=== PATIENT | female | born 1935 | race Hispanic/Latino ===

== ENCOUNTER 2021-05-06 20:28 | Emergency (ER) | payer MEDICARE ==
[~2021-05-06] VITALS: Ht 157.5 cm; Wt 49.9 kg
[2021-05-06] MEDS ORDERED: 0.9% NACL 500ML IV.SOLN 500 ML IV ONE (21:00)
[2021-05-06 21:13] LABS: APPEARANCE,URINE Cloudy (CLEAR); BILIRUBIN,URINE Moderate (NEGATIVE); COLOR,URINE Dark Yellow (YELLOW); GLUCOSE, URINE (UA) Negative (NEGATIVE); KETONES,URINE 40 mg/dL (NEGATIVE); LEUKOCYTE ESTERASE ,URINE Moderate (NEGATIVE); NITRATE,URINE Negative (NEGATIVE); OCCULT BLOOD,URINE Trace (NEGATIVE); PH,URINE 5.5 (5.0-8.0); PROTEIN,URINE POS 1+ mg/dL (NEGATIVE)
[2021-05-06 21:19] LABS: BASOPHILS % (AUTO) 0.2 % (0.0-5.0); EOSINOPHILS % (AUTO) 0.5 % (0.0-8.0); HEMATOCRIT 28.1 % (36-48); LYMPHOCYTES % (AUTO) 12.8 % (21.0-51.0); MEAN CORPUSCULAR HEMOGLOBIN 27.4 pg (27.0-33.0); MEAN CORPUSCULAR HGB CONC 31.7 g/dL (32.0-36.0); MEAN CORPUSCULAR VOLUME 86.5 fL (79-99); MONOCYTES % (AUTO) 7.6 % (3.0-13.0); NEUTROPHILS % (AUTO) 78.1 % (40.0-77.0); PLATELET COUNT (AUTO) 629 K/uL (130-400); RED BLOOD CELL COUNT(AUTO) 3.25 MIL/uL (4.00-5.50); RED CELL DISTRIBUTION WIDTH 14.3 % (11.0-15.5); WHITE BLOOD COUNT (AUTO) 20.1 K/uL (4.8-10.8)
[2021-05-06 21:21] LABS: BACTERIA,URINE Few /HPF (None Seen); SQUAMOUS EPITHELIAL CELL,UR Moderate /HPF (0-2); TRANSITIONAL EPI CELLS,URINE Few /HPF (None Seen)
[2021-05-06 21:22] LABS: MUCUS,URINE Few LPF (None Seen)
[2021-05-06 21:29] LABS: POTASSIUM 3.6 mmol/L (3.5-5.1)
[2021-05-06 21:33] LABS: ALBUMIN 2.3 g/dL (3.5-5.0); BILIRUBIN,TOTAL 0.4 mg/dL (0.2-1.0); MAGNESIUM 1.7 mg/dL (1.80-2.40); TOTAL PROTEIN, SERUM 8.6 g/dL (6.0-8.3)
[2021-05-06 21:55] LABS: SALICYLATE < 2.8 mg/dL (2.8-20.0)
[2021-05-06 21:56] LABS: ACETAMINOPHEN < 1 mcg/mL (10-30)
[2021-05-06] MEDS ORDERED: 0.9%NACL 1000ML 1,000 ML IV ONE (23:30)
[2021-05-06] MEDS ORDERED: CEFTRIAXONE 1G VIAL IVP ONE (23:30)
[2021-05-06] MEDS ORDERED: CEPH500B PO (23:32)
[2021-05-07 00:40] VITALS: BP 123/52
== END 2021-05-07 00:49 | disposition home or self-care (01) ==
LOC: EDH 20:28
DX: N39.0 Urinary tract infection, site not specified (principal); E86.0 Dehydration; Z20.822 Contact with and (suspected) exposure to COVID-19; F03.90 Unspecified dementia, unspecified severity, without behavioral disturbance, psychotic disturbance, mood disturbance, and anxiety; I10 Essential (primary) hypertension
CPT/HCPCS: 36415; 71045; 80053; 81001; 83605; 83735; 84100; 84484; 85025; 87040 ×2; 87088; 87635; 87804 ×2; 93005; 96361; 96374; 99291; C9803; G0481; J0696; J7030; J7040

== ENCOUNTER 2021-05-28 17:13 | Inpatient (IN) | payer MEDICARE ==
[~2021-05-28] VITALS: Ht 154.9 cm; Wt 41.1 kg
[~2021-05-28 17:13] MED LIST: CEFD300C3 PO; CEPH500B PO; ONDA4TAB10 PO
[2021-05-28 18:02] LABS: BASOPHILS % (AUTO) 0.5 % (0.0-5.0); EOSINOPHILS % (AUTO) 2.2 % (0.0-8.0); HEMATOCRIT 28.6 % (36-48); LYMPHOCYTES % (AUTO) 24.8 % (21.0-51.0); MEAN CORPUSCULAR HEMOGLOBIN 26.9 pg (27.0-33.0); MEAN CORPUSCULAR HGB CONC 30.4 g/dL (32.0-36.0); MEAN CORPUSCULAR VOLUME 88.5 fL (79-99); MONOCYTES % (AUTO) 4.5 % (3.0-13.0); NEUTROPHILS % (AUTO) 66.9 % (40.0-77.0); PLATELET COUNT (AUTO) 406 K/uL (130-400); RED BLOOD CELL COUNT(AUTO) 3.23 MIL/uL (4.00-5.50); RED CELL DISTRIBUTION WIDTH 14.9 % (11.0-15.5); WHITE BLOOD COUNT (AUTO) 13.5 K/uL (4.8-10.8)
[2021-05-28 18:18] LABS: CREATININE 1.3 mg/dL (0.5-1.5); POTASSIUM 4.2 mmol/L (3.5-5.1)
[2021-05-28 18:29] LABS: ALBUMIN 2.6 g/dL (3.5-5.0); BILIRUBIN,TOTAL 0.3 mg/dL (0.2-1.0); TOTAL PROTEIN, SERUM 9.1 g/dL (6.0-8.3)
[2021-05-28 18:31] LABS: PLATELET MORPHOLOGY PLT CLUMPS PRESENT
[2021-05-28] MEDS ORDERED: 0.9% NACL 500ML IV.SOLN 500 ML IV ONE (19:30)
[2021-05-28 20:19] LABS: ABG BASE EXCESS -3.2 mmol/L (-2.0-3.0); ABG HCO3 20.4 mmol/L (21.0-28.0); ABG OXYGEN SATURATION 97.7 % (95.0-99.0); ABG PCO2 31 mmHg (32-45)
[2021-05-28 21:27] LABS: APPEARANCE,URINE CLOUDY (CLEAR); BILIRUBIN,URINE MODERATE (NEGATIVE); COLOR,URINE YELLOW (YELLOW); GLUCOSE, URINE (UA) NEGATIVE (NEGATIVE); KETONES,URINE 5 mg/dL (NEGATIVE); LEUKOCYTE ESTERASE ,URINE MODERATE (NEGATIVE); NITRATE,URINE NEGATIVE (NEGATIVE); OCCULT BLOOD,URINE LARGE (NEGATIVE); PROTEIN,URINE 100 mg/dL (NEGATIVE); UROBILINOGEN,URINE 0.2 mg/dL (0.2-1.0)
[2021-05-28 21:41] LABS: BACTERIA,URINE Few /HPF (None Seen); SQUAMOUS EPITHELIAL CELL,UR Rare /HPF (0-2); WBC,URINE 51-100 /HPF (0-1); YEAST,URINE BUDDING Few /HPF (None Seen)
[2021-05-28 21:42] LABS: HYALINE CASTS, URINE 0-1 /LPF (0-1 /LPF)
[2021-05-28] MEDS ORDERED: CEFTRIAXONE 1G VIAL IV SCH (22:30)
[2021-05-28] MEDS ORDERED: ACETAMINOPHEN 325 MG TAB PO PRN (22:30)
[2021-05-28] MEDS: ALBUTEROL INHALER 90MCG/INH IH SCH (22:30)
[2021-05-28] MEDS ORDERED: ZOSYN 3.375GM +NS 50ML IV ONE (22:30)
[2021-05-28] MEDS ORDERED: ERGOCALCIFEROL (VITAMIN D2) 50,000 UNIT CAPSULE PO ONE (22:30)
[2021-05-28] MEDS ORDERED: 0.9%NACL 1000ML 1,000 ML IV SCH (22:30)
[2021-05-28] MEDS ORDERED: 0.9%NACL 1000ML 1,000 ML IV ONE (22:30)
[2021-05-28] MEDS ORDERED: GUAIFENESIN-DM 200/20 MG 10 ML PO PRN (22:30)
[2021-05-28] MEDS ORDERED: ONDANSETRON 4MG INJ IV PRN (22:30)
[2021-05-28] MEDS ORDERED: 0.9%NACL 50ML 50 ML IV ONE (23:25)
[2021-05-29] MEDS: ALBUTEROL INHALER 90MCG/INH IH SCH ×4 (05:22→22:13)
[2021-05-29 08:10] LABS: BASOPHILS % (AUTO) 0.4 % (0.0-5.0); EOSINOPHILS % (AUTO) 1.7 % (0.0-8.0); HEMATOCRIT 24.3 % (36-48); LYMPHOCYTES % (AUTO) 20.3 % (21.0-51.0); MEAN CORPUSCULAR HEMOGLOBIN 27.7 pg (27.0-33.0); MEAN CORPUSCULAR HGB CONC 31.7 g/dL (32.0-36.0); MEAN CORPUSCULAR VOLUME 87.4 fL (79-99); NEUTROPHILS % (AUTO) 71.8 % (40.0-77.0); PLATELET COUNT (AUTO) 356 K/uL (130-400); RED BLOOD CELL COUNT(AUTO) 2.78 MIL/uL (4.00-5.50); RED CELL DISTRIBUTION WIDTH 14.8 % (11.0-15.5); WHITE BLOOD COUNT (AUTO) 13.6 K/uL (4.8-10.8)
[2021-05-29 08:49] LABS: CREATININE 1.3 mg/dL (0.5-1.5); MAGNESIUM 1.4 mg/dL (1.80-2.40); PHOSPHORUS 3.7 mg/dL (2.5-4.9); POTASSIUM 3.8 mmol/L (3.5-5.1)
[2021-05-29] MEDS: ZINC SULFATE 220 CAPSULE PO SCH (08:53)
[2021-05-29] MEDS: ASCORBIC ACID 500 MG TAB PO SCH (08:53)
[2021-05-29] MEDS: FAMOTIDINE 20MG TAB PO SCH (08:53)
[2021-05-29] MEDS ORDERED: ENOXAPARIN SODIUM 30 MG/0.3 ML SQ SCH (09:00)
[2021-05-29] MEDS ORDERED: 0.9%NACL 50ML 50 ML IV ONE ×2 (10:08→19:14)
[2021-05-29] MEDS: ZOSYN 3.375GM +NS 50ML IV SCH ×2 (10:25→19:25)
[2021-05-29] MEDS ORDERED: MAGNESIUM 2GM PREMIX 50ML 50 ML IV PRN (14:30)
[2021-05-29] MEDS ORDERED: DEXTROSE 50%-WATER 50 ML DISP.SYRIN IV ONE (16:52)
[2021-05-29] MEDS ORDERED: DEXTROSE 5 % AND 0.9 % NACL 1,000 ML IV ONE (21:47)
[2021-05-29 22:50] VITALS: BP 100/41
[2021-05-30] MEDS ORDERED: LORAZEPAM 2 MG/ML 1 ML VIAL ONE (00:17)
[2021-05-30] MEDS ORDERED: LORAZEPAM 2 MG/ML 1 ML VIAL IVP ONE (00:30)
[2021-05-30] MEDS ORDERED: ATEN25TA PO (00:44)
[2021-05-30] MEDS ORDERED: MELO-106 PO (00:44)
[2021-05-30] MEDS: ZOSYN 3.375GM +NS 50ML IV SCH ×2 (02:05→09:57)
[2021-05-30 04:00] VITALS: BP 99/48
[2021-05-30] MEDS: ALBUTEROL INHALER 90MCG/INH IH SCH ×3 (04:14→16:40)
[2021-05-30 04:53] LABS: BASOPHILS % (AUTO) 0.6 % (0.0-5.0); LYMPHOCYTES % (AUTO) 13.4 % (21.0-51.0); MEAN CORPUSCULAR HEMOGLOBIN 27.3 pg (27.0-33.0); MEAN CORPUSCULAR HGB CONC 31.1 g/dL (32.0-36.0); MEAN CORPUSCULAR VOLUME 87.8 fL (79-99); MONOCYTES % (AUTO) 4.4 % (3.0-13.0); NEUTROPHILS % (AUTO) 78.9 % (40.0-77.0); PLATELET COUNT (AUTO) 293 K/uL (130-400); RED BLOOD CELL COUNT(AUTO) 2.38 MIL/uL (4.00-5.50); RED CELL DISTRIBUTION WIDTH 15.2 % (11.0-15.5); WHITE BLOOD COUNT (AUTO) 11.6 K/uL (4.8-10.8)
[2021-05-30 04:59] LABS: HEMATOCRIT 20.9 % (36-48)
[2021-05-30 05:02] LABS: % IRON SATURATION 26.8 % (22-44)
[2021-05-30 05:03] LABS: CREATININE 1.1 mg/dL (0.5-1.5); POTASSIUM 3.2 mmol/L (3.5-5.1)
[2021-05-30] MEDS ORDERED: LIDOCAINE HCL-MPF 1% 2ML VIAL IV PRN (05:30)
[2021-05-30] MEDS ORDERED: KCL 20 MEQ ERTAB PO PRN (05:30)
[2021-05-30] MEDS ORDERED: POTASSIUM CHLORIDE 20MEQ/100ML 100 ML IV PRN (05:30)
[2021-05-30] MEDS ORDERED: KCL 20 MEQ ERTAB PO ONE (05:34)
[2021-05-30 08:00] VITALS: BP 98/62
[2021-05-30] MEDS: ZINC SULFATE 220 CAPSULE PO SCH (09:56)
[2021-05-30] MEDS: ASCORBIC ACID 500 MG TAB PO SCH (09:57)
[2021-05-30] MEDS: POTASSIUM CHLORIDE 10% ELIXIR 20 MEQ/15 ML UDCUP PO PRN ×2 (09:57→09:58)
[2021-05-30] MEDS: FAMOTIDINE 20MG TAB PO SCH (09:57)
[2021-05-30 12:00] VITALS: BP 96/52
[2021-05-30 16:00] VITALS: BP 117/62
[2021-05-30] MEDS ORDERED: EPOETIN ALFA-EPBX (NON-ESRD) 10,000 UNIT/ML VIAL SQ SCH (16:00)
[2021-05-30] MEDS ORDERED: IRON SUCROSE COMPLEX 400 MG in 0.9%NACL 50ML 50 ML IV SCH (16:00)
[2021-05-30] MEDS ORDERED: COMPOUND IV MISC 1 EACH IVSOLN MISC PRN (16:30)
[2021-05-30] MEDS ORDERED: ZINC220C6 PO (17:38)
[2021-05-30] MEDS ORDERED: ASCO500T20 PO (17:38)
[2021-05-30] MEDS ORDERED: LEVO500T90 PO (17:38)
[2021-05-30 18:02] LABS: HEMATOCRIT 31.8 % (36-48); MEAN CORPUSCULAR HEMOGLOBIN 28.2 pg (27.0-33.0); MEAN CORPUSCULAR HGB CONC 31.4 g/dL (32.0-36.0); MEAN CORPUSCULAR VOLUME 89.8 fL (79-99); RED BLOOD CELL COUNT(AUTO) 3.54 MIL/uL (4.00-5.50); RED CELL DISTRIBUTION WIDTH 14.8 % (11.0-15.5); WHITE BLOOD COUNT (AUTO) 13.4 K/uL (4.8-10.8)
[2021-05-31] MEDS ORDERED: LEVOFLOXACIN 500 MG TABLET PO SCH (09:00)
== END 2021-05-30 19:35 | disposition home or self-care (01) | DRG 871 ==
LOC: EDH 17:13 → EDHIP 22:03 → 4AH 05-29 21:56
PROVIDERS: ADMIT Internal Medicine; ATTEND Internal Medicine
PROC: 30233N1 Transfusion of Nonautologous Red Blood Cells into Peripheral Vein, Percutaneous Approach (ICD-10-PCS; principal; 2021-05-30)
DX: A41.9 Sepsis, unspecified organism (principal); U07.1 COVID-19; J96.91 Respiratory failure, unspecified with hypoxia; E87.1 Hypo-osmolality and hyponatremia; N39.0 Urinary tract infection, site not specified; M19.90 Unspecified osteoarthritis, unspecified site; I10 Essential (primary) hypertension; B96.20 Unspecified Escherichia coli [E. coli] as the cause of diseases classified elsewhere; D63.8 Anemia in other chronic diseases classified elsewhere; E83.42 Hypomagnesemia; Z90.710 Acquired absence of both cervix and uterus
CPT/HCPCS: 36415; 36430; 36600; 71045; 80048; 80053; 81001; 82270; 82435; 82550; 82607; 82728; 82746; 82803; 82947; 82948; 83540; 83550; 83605; 83735; 83874; 83880; 84100; 84132; 84145; 84295; 84425; 84484; 85018; 85025; 85027; 86850; 86900; 86901; 86923; 87040; 87077; 87088; 87186; 87635; 87804; 93005; C9803; G0378; J0696; J1650; J1756; J2060; J2543; J3475; J7042; J7070; P9016